=== PATIENT | female | born 1960 | race Caucasian/White ===

== ENCOUNTER 2016-11-04 17:56 | Emergency (ER) | payer OTHER ==
[2016-11-04] MEDS ORDERED: HYDROmorphone 1 MG/ML 1 ML SYRINGE IM STA ×2 (18:29→19:50)
[2016-11-04] MEDS ORDERED: ONDANSETRON ODT 4 MG TAB PO STA (18:29)
--- NOTE | 2016-11-04 18:37 | ED ---
General Adult HPI - General Chief complaint: Extremity Injury, Lower Stated complaint: cyst behind rt knee Time Seen by Provider: 11/04/16 18:19 Source: patient, family, RN notes reviewed Mode of arrival: wheelchair Limitations: no limitations - History of Present Illness Initial comments: Patient 56-year-old female who presents emergency room today with a chief complaint of increased pain to the right knee. Does admit that she went to the family doctor earlier today had an injection done to the right knee steroids. Does admit to a history of a cyst in the popliteal area. Patient states that approximately an hour ago began noticing increased pain swelling to the area. Patient denies any injury or trauma. Denies any other complaints or associated symptoms. Patient denies any recent fever, chills, shortness of breath, chest pain, back pain, abdominal pain, nausea or vomiting, dysuria or hematuria, constipation or diarrhea, headaches or visual changes, or any other complaints. - Related Data Previous Rx's Medication Instructions Recorded Hydrocodone/Acetaminophen [[place] 1 each PO Q6HR PRN #10 tab 11/04/16 5-325] Allergies Allergy/AdvReac Type Severity Reaction Status Date / Time ampicillin Allergy Rash/Hives/ Verified 11/04/16 19:05 Itching Review of Systems ROS Statement: Those systems with pertinent positive or pertinent negative responses have been documented in the HPI. ROS Other: All systems not noted in ROS Statement are negative. Past Medical History Past Medical History: No Reported History History of Any Multi-Drug Resistant Organisms: None Reported Past Surgical History: Appendectomy Past Anesthesia/Blood Transfusion Reactions: No Reported Reaction Past Psychological History: No Psychological Hx Reported Smoking Status: Never smoker Past Alcohol Use History: Rare Past Drug Use History: None Reported - Past Family History Mother Family Medical History: No Reported History General Exam - General Exam Comments Initial Comments: General: The patient is awake and alert, in no distress, and does not appear acutely ill. Neck: The neck is supple, there is no tenderness or JVD. Cardiovascular: There is a regular rate and rhythm. No murmur, rub or gallop is appreciated. Respiratory: Lungs are clear to auscultation, respirations are non-labored, breath sounds are equal. No wheezes, stridor, rales, or rhonchi. Musculoskeletal: Patient does have some mild swelling to the right knee when compared bilaterally. She does have tenderness over the anterior aspect. Shows limited range of motion with extension. Sensations intact with pulses equal bilaterally 2+. Strength is 5/5. Neurological: A&O x 3. CN II-XII intact, There are no obvious motor or sensory deficits. Coordination appears grossly intact. Speech is normal. Skin: Skin is warm and dry and no rashes or lesions are noted. Psychiatric: Normal mood and affect. Limitations: no limitations Course Vital Signs 11/04/16 18:13 Temperature 97.8 F Pulse Rate 70 Respiratory 22 Rate Blood Pressure 135/61 O2 Sat by Pulse 99 Oximetry Medical Decision Making - Medical Decision Making Case discussed with Dr Boggs. X-rays negative. Results were discussed with patient. Advised follow-up family doctor tomorrow. Patient feeling better after pain medication given here in the emergency room. Advised continued ice and elevate the affected area. Disposition Clinical Impression: Knee pain, acute Disposition: HOME SELF-CARE Condition: Good Instructions: Knee Pain (ED) Additional Instructions: Please use medication as discussed. Please follow-up with family doctor tomorrow. Please return to emergency room if the symptoms increase or worsen or for any other concerns. Prescriptions: Hydrocodone/Acetaminophen [[place] 5-325] 1 each PO Q6HR PRN #10 tab PRN Reason: Pain Referrals: Nhi Marie DO [Primary Care Provider] - 1-2 days Time of Disposition: 19:51
--- NOTE | 2016-11-04 19:01 | XR ---
EXAMINATION TYPE: XR knee complete RT DATE OF EXAM: 11/04/2016 CLINICAL HISTORY: Posterior right knee pain after steroid injection. TECHNIQUE: Three views of the right knee are obtained. COMPARISON: None. FINDINGS: There is no acute fracture/dislocation evident in right knee. There is fairly moderate galo nt space loss with subchondral cystic change medial tibiofemoral compartment. Mild joint space loss p atellofemoral compartment is seen. Increased density suprapatellar bursa could reflect moderate to la rge joint effusion, nonspecific finding. IMPRESSION: There is no acute fracture or dislocation in the right knee.
[2016-11-04] MEDS ORDERED: KETOROLAC 60 MG/2 ML VIAL IM STA (19:18)
[2016-11-04] MEDS ORDERED: LORazepam 1 MG TAB PO STA (19:18)
[2016-11-04 20:06] VITALS: BP 138/79; PULSE 75; RESP 20; TEMP 97.9
== END 2016-11-04 20:10 | disposition home or self-care (01) ==
LOC: EC 17:56
DX: M25.561 Pain in right knee (principal); R22.41 Localized swelling, mass and lump, right lower limb; Z88.1 Allergy status to other antibiotic agents
CPT/HCPCS: 73562; 99283; 96372 ×3; J1885; J1170

== ENCOUNTER 2019-07-14 18:59 | Emergency (ER) | payer BC, OTHER ==
[2019-07-14] MEDS ORDERED: Acetaminophen-Codeine 300-30mg TAB PO STA (19:53)
--- NOTE | 2019-07-14 20:00 | ED ---
Fall HPI - General Chief Complaint: Fall Stated Complaint: Fall Time Seen by Provider: 07/14/19 19:08 Source: patient Mode of arrival: wheelchair - History of Present Illness Initial Comments: Patient is a 59-year-old female presenting to emergency room with a chief complaint of a fall. Patient states she was sitting at the edge of her bedroom bed which is approximately 3 feet off the ground. Patient states she tripped and fell off completely R back. Patient states she most likely hit her head but is not completely sure. Denies loss of consciousness. States the incident occurred about 5 hours prior to arrival. States she has pain near the sternum. Also reports she has left shoulder pain and is unable to abductor her left upper extremity due to pain. Does report taking ibuprofen at home with minimal improvement. Denies any nausea vomiting shortness of breath back pain abdominal pain. Denies shortness of breath, headache, blurry vision, neck pain, one-sided weakness or paresthesias. Not on blood thinners. - Related Data Previous Rx's Medication Instructions Recorded Hydrocodone/Acetaminophen [[place] 1 each PO Q6HR PRN #10 tab 11/04/16 5-325] Allergies Allergy/AdvReac Type Severity Reaction Status Date / Time ampicillin Allergy Rash/Hives/ Verified 07/14/19 19:05 Itching Review of Systems ROS Statement: Those systems with pertinent positive or pertinent negative responses have been documented in the HPI. ROS Other: All systems not noted in ROS Statement are negative. Past Medical History Past Medical History: No Reported History History of Any Multi-Drug Resistant Organisms: None Reported Past Surgical History: Appendectomy Past Anesthesia/Blood Transfusion Reactions: No Reported Reaction Past Psychological History: No Psychological Hx Reported Smoking Status: Never smoker Past Alcohol Use History: Rare Past Drug Use History: None Reported - Past Family History Mother Family Medical History: No Reported History General Exam Limitations: no limitations General appearance: alert, in no apparent distress Head exam: Present: normocephalic, normal inspection. Absent: atraumatic (Small hematoma measuring approximately 2 cm in diameter in the left parietal region), other (Negative Madrid sign, raccoon eyes or hemotympanum) Eye exam: Present: normal appearance, PERRL, EOMI Pupils: Present: normal accommodation ENT exam: Present: normal exam, normal oropharynx (No oral trauma), mucous membranes moist, TM's normal bilaterally, normal external ear exam Neck exam: Present: normal inspection, full ROM. Absent: tenderness Respiratory exam: Present: normal lung sounds bilaterally, chest wall tenderness (Reproducible diffuse chest wall tenderness) Cardiovascular Exam: Present: regular rate, normal rhythm, normal heart sounds GI/Abdominal exam: Present: soft. Absent: distended, guarding Extremities exam: Present: normal inspection, tenderness (Left shoulder tenderness.), normal capillary refill, other (+2 ulnar and radial pulses bilaterally.). Absent: full ROM (Limited range of motion in left upper extremity with abduction due to pain) Back exam: Present: normal inspection, full ROM. Absent: tenderness, paraspinal tenderness, vertebral tenderness Neurological exam: Present: alert, oriented X3, CN II-XII intact, normal gait, reflexes normal Psychiatric exam: Present: normal affect, normal mood Skin exam: Present: warm, dry, intact, normal color Course Vital Signs 07/14/19 07/14/19 19:02 21:13 Temperature 98.1 F 98.0 F Pulse Rate 88 82 Respiratory 20 16 Rate Blood Pressure 124/75 126/79 O2 Sat by Pulse 100 99 Oximetry Medical Decision Making - Medical Decision Making Patient is 59-year-old female presenting to the emergency department with chief complaint of a fall. Patient fell off her bed and flat on her back. On exam she does have a small hematoma in the left parietal region. CT of neck and brain obtained shows no acute hemorrhage, fractures, or midline shift. Patient did also have diffuse chest tenderness that was reproducible palpation. Chest x-ray is unremarkable. Limited range of motion the left upper extremity especially with abduction. Left shoulder x-rays unremarkable. Patient denies any focal neuro deficits. Denies any numbness or tingling. Patient given Tylenol 3 in the ED. Patient does report some improvement in symptoms. Patient advised to rest, alternate between Tylenol and Motrin for pain control. Return parameters thoroughly discussed with patient was understanding and agreeable. Case discussed with physician. Disposition Clinical Impression: Fall, Head injury Disposition: HOME SELF-CARE Condition: Good Instructions (If sedation given, give patient instructions): Fall Prevention (ED) Additional Instructions: Alternate between Tylenol and Motrin for pain control. Rest. Return to emergency department if symptoms worsen. Follow primary care. Is patient prescribed a controlled substance at d/c from ED?: No Referrals: Nhi Marie DO [Primary Care Provider] - 1-2 days Time of Disposition: 21:05
--- NOTE | 2019-07-14 20:17 | CT ---
EXAMINATION TYPE: CT brain cristina liu con DATE OF EXAM: 07/14/2019 COMPARISON: None HISTORY: Fall from bed. Posterior head injury. Headache. Neck pain. CT DLP: 1217.2 mGycm Automated exposure control for dose reduction was used. Ventricles and sulci appear normal. There is no mass effect nor midline shift. There is no sign of in tracranial hemorrhage. The calvarium is intact. There is no evidence of cerebral edema. Cervical vertebra have normal alignment. There is mild degenerative disc space narrowing from C4 to C 7 with minor spur formation. Facet joints are intact. There is minimal facet arthropathy. The skull b ase is intact. Temporal bones are intact. There is some scarring at the lung apices. IMPRESSION: Negative CT scan of the brain. Minor degenerative disc changes in the cervical spine. No fracture seen.
--- NOTE | 2019-07-14 20:18 | XR ---
EXAMINATION TYPE: XR chest 2V DATE OF EXAM: 07/14/2019 COMPARISON: NONE HISTORY: Pain TECHNIQUE: 2 views FINDINGS: Heart and mediastinum are normal. Lungs are clear. Diaphragm is normal. Bony thorax is inta ct. Pulmonary vascularity is normal. There is some osteopenia and slight anterior wedging of mid thor acic vertebra. IMPRESSION: No active cardiopulmonary disease.
--- NOTE | 2019-07-14 20:19 | XR ---
EXAMINATION TYPE: XR shoulder complete LT DATE OF EXAM: 07/14/2019 COMPARISON: NONE HISTORY: Pain after a fall TECHNIQUE: 3 views FINDINGS: There is no sign of fracture nor dislocation. Joint spaces are fairly normal. There are no erosions. There are no pathologic calcifications. IMPRESSION: Negative left shoulder exam.
[2019-07-14 21:27] VITALS: BP 126/79; PULSE 82; RESP 16; TEMP 98
== END 2019-07-14 21:20 | disposition home or self-care (01) ==
LOC: EC 18:59
DX: S00.03XA Contusion of scalp, initial encounter (principal); M25.512 Pain in left shoulder; R07.89 Other chest pain; Z88.0 Allergy status to penicillin; W06.XXXA Fall from bed, initial encounter; Y93.89 Activity, other specified; Y92.009 Unspecified place in unspecified non-institutional (private) residence as the place of occurrence of the external cause
CPT/HCPCS: 70450; 71046; 72125; 99284

== ENCOUNTER 2019-07-16 01:21 | Emergency (ER) | payer BC ==
[2019-07-16] MEDS ORDERED: MECLIZINE 12.5 MG TAB PO STA (01:52)
[2019-07-16] MEDS ORDERED: SODIUM CHLORIDE 0.9% 500 ML 500 ML IV STA (01:52)
[2019-07-16] MEDS ORDERED: DIAZEPAM 5 MG/ML 2 ML INJ IVP STA (01:57)
--- NOTE | 2019-07-16 02:32 | ED ---
Dizziness HPI - General Chief Complaint: Dizziness Stated Complaint: Dizziness Time Seen by Provider: 07/16/19 01:47 Source: patient Mode of arrival: wheelchair Limitations: no limitations - History of Present Illness Initial Comments: 59-year-old female presenting today for chief complaint of dizziness. Patient states that yesterday she had fallen off the bed and hit her head she presented to the emergency department where she had CT of the brain obtained revealing no acute process. Patient states now sometimes when she moves her head that she has dizziness. Patient states it sometimes occurs when going from sitting to standing or standing to sitting. Patient denies any chest pressure she denies any lightheadedness or presyncope. Patient denies any known cardiac history. Denies shortness of breath. Denies visual changes, states she has had mild headache since fall> Denies ataxia, imbalance. Patient denies nausea,vomiting, neck pain. Patient has no other complaints. WHen she had an episode of dizziness this evening her daughter made her come to the ER. Upon arrival patient VS stable she appears well there is no signs of acute distress. - Related Data Previous Rx's Medication Instructions Recorded Hydrocodone/Acetaminophen [[place] 1 each PO Q6HR PRN #10 tab 11/04/16 5-325] Meclizine [Antivert] 25 mg PO BID 7 Days #14 tab 07/16/19 Allergies Allergy/AdvReac Type Severity Reaction Status Date / Time ampicillin Allergy Rash/Hives/ Verified 07/16/19 01:26 Itching Review of Systems ROS Statement: Those systems with pertinent positive or pertinent negative responses have been documented in the HPI. ROS Other: All systems not noted in ROS Statement are negative. Past Medical History Past Medical History: No Reported History History of Any Multi-Drug Resistant Organisms: None Reported Past Surgical History: Appendectomy Past Anesthesia/Blood Transfusion Reactions: No Reported Reaction Past Psychological History: No Psychological Hx Reported Smoking Status: Never smoker Past Alcohol Use History: Rare Past Drug Use History: None Reported - Past Family History Mother Family Medical History: No Reported History General Exam - General Exam Comments Initial Comments: General: The patient is awake and alert, in no distress Eye: +3 mm pupils are equal, round and reactive to light, extra-ocular movem ents are intact. No nystagmus. There is normal conjunctiva bilaterally. No signs of icterus. Ears, nose, mouth and throat: There are moist mucous membranes and no oral l esions. Neck: The neck is supple, there is no tenderness or JVD. No nuchal rigidity. Cardiovascular: There is a regular rate and rhythm. No murmur, rub or gallop is appreciated. Respiratory: Lungs are clear to auscultation, respirations are non-labored, breath sounds are equal. No wheezes, stridor, rales, or rhonchi. Gastrointestinal: Soft, non-distended, non-tender abdomen without masses or organomegaly noted. There is no rebound or guarding present. Musculoskeletal: Normal ROM, no tenderness. Strength 5/5. Sensation intact. Radial pulses equal bilaterally 2+. Neurological: A&O x 3. CN II-XII intact, There are no obvious motor or sensory deficits. Coordination appears grossly intact. Speech is normal. Finger to nose, heel to cisse smooth and coordinated, gait coordinated. Skin: Skin is warm and dry and no rashes or lesions are noted. Psychiatric: Cooperative, appropriate mood & affect, normal judgment. Limitations: no limitations Course Vital Signs 07/16/19 07/16/19 07/16/19 01:22 02:18 02:30 Temperature 98.1 F Pulse Rate 89 64 70 Respiratory 16 17 16 Rate Blood Pressure 126/79 120/64 O2 Sat by Pulse 99 98 99 Oximetry 07/16/19 03:25 Temperature 97.8 F Pulse Rate 64 Respiratory 18 Rate Blood Pressure 115/52 O2 Sat by Pulse 97 Oximetry Medical Decision Making - Medical Decision Making Very well-appearing 59-year-old female presented on DIZZINESS increasing with different positions of the head since a fall yesterday. Ear examination unremarkable. Patient is no focal neurological deficit she has no ataxia or movements are smooth and coordinated. Patient has no nystagmus. Patient states the symptoms resolved after Valium and meclizine. Patient was given IV fluids. EKG no acute findings. Pulse exam within normal limits lungs sounds clear with no murmur on heart examination. At this time feel patient is stable for discharge with PCP f/u, return for worsening symptoms. Patient is take meclizine outpatient. Patient agreeable to discharge as well as attending after discussi ng case, reviewing EKG> - Lab Data Result diagrams: 07/16/19 02:17 07/16/19 02:17 Lab Results 07/16/19 07/16/19 Range/Units 02:17 02:17 WBC 6.7 (3.8-10.6) k/uL RBC 4.49 (3.80-5.40) m/uL Hgb 13.3 (11.4-16.0) gm/dL Hct 40.2 (34.0-46.0) % MCV 89.5 (80.0-100.0) fL MCH 29.7 (25.0-35.0) pg MCHC 33.1 (31.0-37.0) g/dL RDW 13.3 (11.5-15.5) % Plt Count 302 (150-450) k/uL Neutrophils % 70 % Lymphocytes % 20 % Monocytes % 5 % Eosinophils % 2 % Basophils % 0 % Neutrophils # 4.7 (1.3-7.7) k/uL Lymphocytes # 1.4 (1.0-4.8) k/uL Monocytes # 0.3 (0-1.0) k/uL Eosinophils # 0.1 (0-0.7) k/uL Basophils # 0.0 (0-0.2) k/uL Sodium 139 (137-145) mmol/L Potassium 4.4 (3.5-5.1) mmol/L Chloride 105 (98-107) mmol/L Carbon Dioxide 29 (22-30) mmol/L Anion Gap 5 mmol/L BUN 21 H (7-17) mg/dL Creatinine 0.76 (0.52-1.04) mg/dL Est GFR (CKD-EPI)AfAm >90 (>60 ml/min/1.73 sqM) Est GFR (CKD-EPI)NonAf 85 (>60 ml/min/1.73 sqM) Glucose 121 H (74-99) mg/dL Calcium 9.3 (8.4-10.2) mg/dL Total Bilirubin 0.5 (0.2-1.3) mg/dL AST 31 (14-36) U/L ALT 18 (4-34) U/L Alkaline Phosphatase 90 (38-126) U/L Total Protein 7.0 (6.3-8.2) g/dL Albumin 4.0 (3.5-5.0) g/dL Disposition Clinical Impression: Concussion, Dizziness Disposition: HOME SELF-CARE Condition: Good Instructions (If sedation given, give patient instructions): Dizziness (ED) Additional Instructions: Please use medication as discussed. Please follow-up with family doctor in the next 2 days. Please return to emergency room if the symptoms increase or worsen or for any other concerns. Prescriptions: Meclizine [Antivert] 25 mg PO BID 7 Days #14 tab Is patient prescribed a controlled substance at d/c from ED?: No Referrals: Nhi Marie DO [Primary Care Provider] - 1-2 days Time of Disposition: 02:35
[2019-07-16 03:03] LABS: Basophils % (A) 0 %; Eosinophils # (A) 0.1 k/uL (0-0.7); Eosinophils % (A) 2 %; HCT 40.2 % (34.0-46.0); HGB 13.3 gm/dL (11.4-16.0); Lymphocytes # (A) 1.4 k/uL (1.0-4.8); Lymphocytes % (A) 20 %; MCH 29.7 pg (25.0-35.0); MCHC 33.1 g/dL (31.0-37.0); MCV 89.5 fL (80.0-100.0); Mean Platelet Volume 7.9; Monocytes # (A) 0.3 k/uL (0-1.0); Monocytes % (A) 5 %; Neutrophils # (A) 4.7 k/uL (1.3-7.7); Neutrophils % (A) 70 %; Platelet Count 302 k/uL (150-450); RBC 4.49 m/uL (3.80-5.40); RDW 13.3 % (11.5-15.5); WBC 6.7 k/uL (3.8-10.6)
[2019-07-16 03:06] LABS: ALT 18 U/L (4-34); AST 31 U/L (14-36); African American GFR (CKD) >90 (>60 ml/min/1.73 sqM); Alkaline Phosphatase 90 U/L (38-126); Anion Gap 5 mmol/L; Blood Urea Nitrogen 21 mg/dL (7-17); Calcium 9.3 mg/dL (8.4-10.2); Carbon Dioxide 29 mmol/L (22-30); Chloride 105 mmol/L (98-107); Glucose 121 mg/dL (74-99); Non-African American GFR(CKD) 85 (>60 ml/min/1.73 sqM); Potassium 4.4 mmol/L (3.5-5.1); Sodium 139 mmol/L (137-145); Total Bilirubin 0.5 mg/dL (0.2-1.3)
[2019-07-16 03:26] VITALS: BP 115/52; PULSE 64; RESP 18; TEMP 97.8
== END 2019-07-16 03:26 | disposition home or self-care (01) ==
LOC: EC 01:21
DX: S06.0X0A Concussion without loss of consciousness, initial encounter (principal); Z88.0 Allergy status to penicillin; W06.XXXA Fall from bed, initial encounter
CPT/HCPCS: 36415; 93005; 80053; 85025; 99284; 96374; 96361; J3360